=== PATIENT | male | born 1935 | race Caucasian/White ===

== ENCOUNTER → 2016-11-05 | Outpatient (CLI) | payer MEDICARE | LOC: OPSV 13:00 | DX: L50.1 Idiopathic urticaria (principal) | CPT/HCPCS: 96372; J2357 ==

== ENCOUNTER → 2016-12-06 | Outpatient (CLI) | payer MEDICARE ==
[~2016-12-06] VITALS: Ht 175.3 cm; Wt 108.9 kg
== END ==
LOC: OPSV 13:26
DX: L50.1 Idiopathic urticaria (principal)
CPT/HCPCS: 96372; J2357

== ENCOUNTER → 2017-01-05 | Outpatient (CLI) | payer MEDICARE ==
[~2017-01-05] VITALS: Ht 175.3 cm; Wt 90.3 kg
== END ==
LOC: OPSV 12:18
DX: L50.1 Idiopathic urticaria (principal)
CPT/HCPCS: 96372; J2357

== ENCOUNTER → 2017-02-07 | Outpatient (CLI) | payer MEDICARE ==
[~2017-02-07] VITALS: Ht 175.3 cm; Wt 90.3 kg
== END ==
LOC: OPSV 11:56
DX: L50.1 Idiopathic urticaria (principal)
CPT/HCPCS: 96372; J2357